=== PATIENT | male | born 1955 | race Caucasian/White ===

== ENCOUNTER 2018-10-28 08:48 | Day surgery (SDC) | payer OTHER ==
[~2018-10-28 08:48] MED LIST: LIDOCAINE HCL 1% MPF 30 SOL ONE; PROPOFOL 500 MG/50 ML EMU IV ONE
[2018-10-28 10:03] VITALS: RESP 16
[2018-10-28 10:07] VITALS: PULSE 70
[2018-10-28 10:14] VITALS: BP 116/78; TEMP 96.9; O2SAT 98
== END 2018-10-28 10:39 | disposition home or self-care (01) | DRG 951 ==
LOC: SURG 08:48
PROVIDERS: ATTEND Surgery
DX: Z12.11 Encounter for screening for malignant neoplasm of colon (principal); K57.32 Diverticulitis of large intestine without perforation or abscess without bleeding
CPT/HCPCS: J2001; J2704